=== PATIENT | male | born 1975 | race Caucasian/White ===

== ENCOUNTER 2018-02-03 17:09 | Emergency (ER) | payer BC, OTHER ==
[~2018-02-03] VITALS: Ht 165.1 cm; Wt 117.9 kg
[~2018-02-03 17:09] MED LIST: ALEVE220 MG PO; CLINDAMYCIN HC300 MG PO; DICLOFENAC SODI75 MG PO; FLOMAX0.4 MG PO; KEFLEX500 MG PO; KETOROLAC TROME10 MG PO; NORCO 5-325 TA1 EACH PO; OMEPRAZOLE20 MG PO
[2018-02-03] MEDS ORDERED: GABAPENTIN300 MG PO (17:33)
[2018-02-03] MEDS ORDERED: OMEPRAZOLE20 MG PO (17:33)
[2018-02-03] MEDS ORDERED: PREDNISONE20 MG PO (19:24)
== END 2018-02-03 19:38 | disposition home or self-care (01) ==
LOC: ED 17:09
DX: M25.521 Pain in right elbow (principal); K21.9 Gastro-esophageal reflux disease without esophagitis; Z87.442 Personal history of urinary calculi; Z79.899 Other long term (current) drug therapy
CPT/HCPCS: 36415; 73080; 85025; 85651; 86140; 99283

== ENCOUNTER 2022-05-01 14:58 | Emergency (ER) | payer OTHER ==
[~2022-05-01] VITALS: Ht 165.1 cm; Wt 145.2 kg
[~2022-05-01 14:58] MED LIST changes: +DULOXETINE HCL30 MG PO; +GABAPENTIN300 MG PO; +PREDNISONE20 MG PO
[2022-05-01] MEDS ORDERED: PREGABALIN75 MG PO (15:18)
[2022-05-01] MEDS ORDERED: VENTOLIN HFA18 GM INH (15:20)
[2022-05-01] MEDS ORDERED: ALBUTEROL2.5 MG/3 M INH (15:20)
[2022-05-01] MEDS ORDERED: BUDESONIDE-FO10.2 G1 INH (15:20)
[2022-05-01] MEDS ORDERED: PREDNISONE20 MG PO (17:28)
--- NOTE | 2022-05-03 18:54 | EKG ---
[facility] [address] [facility] [place], [place] [address] Signed Normal sinus rhythm Normal ECG No previous ECGs available Confirmed by PARDEEP LOPEZ MD ([id number]) on 05/03/2022 6:54:09 PM Electronically Signed By: PARDEEP LOPEZ MD 05/03/22 1854 PATIENT NAME: PIYUSH WISE AMAN Electrocardiogram DATE OF : 79 PHYSICIAN: PARDEEP LOPEZ MD REPORT #: [id number] REPORT IS CONFIDENTIAL AND NOT TO BE RELEASED WITHOUT AUTHORIZATION
== END 2022-05-01 17:39 | disposition home or self-care (01) ==
LOC: ED 14:58
DX: J45.901 Unspecified asthma with (acute) exacerbation (principal); K21.9 Gastro-esophageal reflux disease without esophagitis; Z87.442 Personal history of urinary calculi; Z79.899 Other long term (current) drug therapy; Z20.822 Contact with and (suspected) exposure to COVID-19
CPT/HCPCS: 36415; 71045; 80053; 83880; 85025; 85379; 87502; 93005; 93010; 94640; 96374; 99285-25; C9803; J2930; U0003

== ENCOUNTER 2024-01-26 12:50 | Day surgery (SDC) | payer OTHER, BC ==
[~2024-01-26] VITALS: Ht 165.1 cm; Wt 117.3 kg
--- NOTE | ~2024-01-26 | OR ---
[facility] [address] [place], [place] [address] Draft DATE OF OPERATION: 01/26/2024 SURGEON: Eula Hernandez MD PREOPERATIVE DIAGNOSIS: Colon screening. POSTOPERATIVE DIAGNOSIS: Mild edema of colon including rectum. PROCEDURE: Total colonoscopy to cecum with biopsy of rectum. ANESTHESIA: Intravenous sedation; fentanyl 100 mcg, Versed 6 mg. INDICATIONS: This 48-year-old white man is a patient of Dr. Ontiveros. He last underwent colonoscopy 15 years ago as well as concurrent upper endoscopy. At that time, he was quite morbidly obese and in the meantime, has lost over 100 pounds. He has been referred by Dr. Ontiveros for colonoscopy based on his age and interval time since last colonoscopy. The previous colonoscopy showed no sign of obvious abnormality. Biopsies had been taken at that time for diarrhea issues including the ileum. No specific diagnosis was discovered, however. He understands the risk of colonoscopy including but not limited to bleeding, infection, and perforation and wished to proceed. FINDINGS: The prep was good. Complete colonoscopy was undertaken to the cecum. Good visualization of the cecum was noted overall. There was no evidence of polyps, diverticular formation, true colitis, or cancer. He did have a reticular appearance of the mucosa to a degree, possibly prep related and biopsy was taken of the rectum to assess for occult colitis. DESCRIPTION OF PROCEDURE: The patient was brought to the endoscopy suite and placed in lateral decubitus position given intravenous sedation to the point of slurred speech and nystagmus. Full cardiopulmonary monitoring was maintained. Digital rectal examination was normal. An Olympus video colonoscope was passed in the rectum and manipulated throughout the colon ultimately intubating the cecum. Various manipulations were made to view the PATIENT NAME: PIYUSH WISE OPERATIVE REPORT DATE OF : 79 REPORT #: [id number] PHYSICIAN: EULA HERNANDEZ MD PCP: ELLEN ONTIVEROS MD REPORT IS CONFIDENTIAL AND NOT TO BE RELEASED WITHOUT AUTHORIZATION [facility] [address] [place], [place] [address] Draft entire cecum. A biopsy forceps was used to do a "pullup" of the mucosa, which showed no sign of neoplasm behind the ileocecal valve so far as could be told. The scope was then withdrawn and examination throughout undertaken showing no sign of diverticular formation, strict findings of colitis or polyp, though the mucosa particularly in the left side was a bit edematous with diffuse haziness of blood vessels suggestive of a low-grade edematous inflammatory condition. Biopsies of the rectum were undertaken on that basis. Retroflexed view was otherwise normal. The scope was removed and the patient was taken to the recovery room in good condition. CONCLUDING DIAGNOSIS: Essentially normal. PLAN: We will review his pathology report to assure there is no sign of occult colitis (microscopic colitis, etc.) Would recommend repeat colonoscopy in 10 years based on current guidelines, sooner if symptoms should develop. He will return to the ongoing care of Dr. Ontiveros otherwise. MD WILLIAM Solano/MANDEEP /[id number] cc: Dr. Jerald Hernandez Copies: ~ PATIENT NAME: FRANDYPIYUSH OPERATIVE REPORT DATE OF : 79 REPORT #: [id number] PHYSICIAN: EULA HERNANDEZ MD PCP: ELLEN ONTIVEROS MD REPORT IS CONFIDENTIAL AND NOT TO BE RELEASED WITHOUT AUTHORIZATION
[~2024-01-26 12:50] MED LIST changes: +ALBUTEROL2.5 MG/3 M INH; +BUDESONIDE-FO10.2 G1 INH; +IBLOOD GLUCOSE TEST STRIP 1 EA TEST VI PRN; +LACTATED RINGER'S 1,000 ML IV SCH; +LIDOCAINE HCL 1% 5 ML SDV INJ ONE; +LOMOTIL TABLET1 EACH PO; +MIDAZOLAM HCL 5 MG/5 ML VIAL IV PRN; +ONDANSETRON ODT8 MG PO; +PHENTERMINE HCL30 MG PO; +PREGABALIN75 MG PO; +TOPIRAMATE ER50 M1 PO; +TRAMADOL HCL50 MG PO; +VENTOLIN HFA18 GM INH; +fentaNYL citrate 100 MCG/2 ML VIAL IV PRN
[2024-01-26 13:09] VITALS: BP 133/89
[2024-01-26] MEDS ORDERED: PROBIOTIC1 EAC1 PO (13:09)
[2024-01-26] MEDS ORDERED: MIDAZOLAM HCL 5 MG/5 ML VIAL ONE (13:47)
[2024-01-26] MEDS ORDERED: fentaNYL citrate 100 MCG/2 ML VIAL ONE (13:47)
--- NOTE | 2024-01-26 14:48 | NUR ---
01/26/24 1448 Zahida Resendez 1433- PT ARRIVES TO THE PACU WITH A NATURAL AIRWAY ON 2L OF O2 VIA NASAL CANNULA. BREATHING IS EVEN AND UNLABORED. ALL MONITORS PUT IN PLACE. PT OPENS HIS EYES TO VERBAL AND LIGHT TACTILE STIMULI. PT REPORTS 7/10 PAIN BETWEEN HIS CHRONIC BACK PAIN AND HIS ABDOMEN. PT IS EDUCATED ON GAS PAIN AND ENCOURAGED TO PASS GAS. PT EASILY FALLS BACK TO SLEEP.
[2024-01-26] MEDS ORDERED: hydrALAZINE HCL 20 MG/ML VIAL IV ONE (15:00)
[2024-01-26 15:25] VITALS: BP 151/86
--- NOTE | 2024-01-30 12:47 | PATH ---
[facility] [address] [place], [place] [address] Signed SPECIMEN(S): A RECTUM SPECIMEN SOURCE: A. RECTUM CLINICAL HISTORY: Pre-: Surveillance colonoscopy. Post: Mild proctitis FINAL PATHOLOGIC DIAGNOSIS: Rectum, biopsy: - Colonic mucosa with no significant pathologic changes BRP MICROSCOPIC EXAMINATION: Histologic sections of all submitted blocks are examined by light microscopy. These findings, together with the gross examination, support the pathologic diagnosis. GROSS DESCRIPTION: The specimen, labeled and designated "Christophe Wise, rectum biopsy," is received in formalin and consists of three odonnell soft tissue fragments, ranging from 0.3-0.4 cm. Entirely submitted in (A1). AB (under the direct supervision of a pathologist) The Gross Description was prepared using a voice recognition system. The report was reviewed for accuracy; however, sound-alike word errors, addition and/or deletions may occur. If there is any question about this report, please contact Client Services. ADDITIONAL NOTES: Immunohistochemical and/or in situ hybridization studies if performed in this case included appropriate positive controls that reacted as expected. This test was developed and its performance characteristics determined by [facility]. It has not been cleared or approved by the U.S. Food and Drug Administration. The FDA has determined that such clearance or approval is not necessary. This test is used for clinical purposes. It should not be regarded as investigational or for research. [facility] is certified under the Clinical Laboratory Improvement Amendments of 1988 (CLIA) as qualified to perform high complexity clinical laboratory testing. PATIENT NAME: PIYUSH WISE PATHOLOGY DATE OF : 79 REPORT #: [id number] PHYSICIAN: MARCOS STALLINGS PCP: ELLEN ONTIVEROS MD REPORT IS CONFIDENTIAL AND NOT TO BE RELEASED WITHOUT AUTHORIZATION [facility] [address] [facility] [place] [address] Signed PERFORMING LABORATORY: Technical component was performed by [facility], [address] [place] [address] (CLIA# [id number]). [facility] [address] [id number] Diagnostician: Chadwick Caceres MD Pathologist Electronically Signed 01/30/2024 Copies: ~ PATIENT NAME: PIYUSH WISE PATHOLOGY DATE OF : 79 REPORT #: [id number] PHYSICIAN: MARCOS STALLINGS PCP: ELLEN ONTIVEROS MD REPORT IS CONFIDENTIAL AND NOT TO BE RELEASED WITHOUT AUTHORIZATION
== END 2024-01-26 15:33 | disposition home or self-care (01) ==
LOC: DS 12:50
PROVIDERS: ATTEND Surgery
PROC: 0DBP8ZX Excision of Rectum, Via Natural or Artificial Opening Endoscopic, Diagnostic (ICD-10-PCS; principal; 2024-01-26 14:30)
DX: Z12.11 Encounter for screening for malignant neoplasm of colon (principal); K63.89 Other specified diseases of intestine; E66.01 Morbid (severe) obesity due to excess calories; G47.33 Obstructive sleep apnea (adult) (pediatric); Z68.41 Body mass index [BMI] 40.0-44.9, adult; Z90.49 Acquired absence of other specified parts of digestive tract
CPT/HCPCS: 99153; G0500; J0360; J2250; J3010; J7121

== ENCOUNTER 2024-04-18 19:44 | Emergency (ER) | payer OTHER, BC ==
[~2024-04-18] VITALS: Ht 165.1 cm; Wt 127.0 kg
[~2024-04-18 19:44] MED LIST changes: -IBLOOD GLUCOSE TEST STRIP 1 EA TEST VI PRN; -LACTATED RINGER'S 1,000 ML IV SCH; -LIDOCAINE HCL 1% 5 ML SDV INJ ONE; -MIDAZOLAM HCL 5 MG/5 ML VIAL IV PRN; +PROBIOTIC1 EAC1 PO; -fentaNYL citrate 100 MCG/2 ML VIAL IV PRN
[2024-04-18] MEDS ORDERED: FAMOTIDINE 20 MG TAB PO ONE (22:30)
[2024-04-18] MEDS ORDERED: diphenhydrAMINE HCL 50 MG CAP PO ONE (22:30)
[2024-04-18] MEDS ORDERED: DEXAMETHASONE SOD PHOS 10 MG/ML VIAL IM ONE (22:30)
[2024-04-18] MEDS ORDERED: methylPREDNISolone 4 MG HOME.PACK PO ONE (23:00)
[2024-04-18 23:30] VITALS: BP 167/84
== END 2024-04-18 23:30 | disposition home or self-care (01) ==
LOC: ED 19:44
DX: R09.89 Other specified symptoms and signs involving the circulatory and respiratory systems (principal); T39.395A Adverse effect of other nonsteroidal anti-inflammatory drugs [NSAID], initial encounter; Z79.899 Other long term (current) drug therapy
CPT/HCPCS: 96372; 99283; J1100; Q0163